=== PATIENT | male | born 1980 | race African-American/Black ===

== ENCOUNTER 2019-11-08 08:22 | Emergency (ER) | payer SELFPAY ==
[~2019-11-08] VITALS: Ht 177.8 cm; Wt 59.0 kg
[2019-11-08 08:45] VITALS: BP 130/63
[2019-11-08] MEDS ORDERED: TRAM50TA PO (08:59)
[2019-11-08] MEDS ORDERED: AMOX500T PO (09:00)
[2019-11-08] MEDS ORDERED: KETOROLAC 60 MG/2 ML VIAL. IM ONE (09:00)
[2019-11-08] MEDS ORDERED: IBUP-1060 PO (09:00)
--- NOTE | 2019-11-08 09:00 | PHYS DOC ---
General Adult EDM: Chief Complaint: DENTAL PROBLEM HPI: HPI: Patient is a 39 year old male who presented to ER today for evaluation of right lower dental pain and right lower jaw pain and swelling since yesterday. Patient denies any fever, no headache, no cough, no fever. Review of Systems: Review of Systems: Constitutional: Denies fever or chills. [] Eyes: Denies change in visual acuity. [] HENT: Denies nasal congestion or sore throat. [] Positive for right lower dental pain and right lower jaw swelling. Respiratory: Denies cough or shortness of breath. [] Cardiovascular: Denies chest pain or edema. [] GI: Denies abdominal pain, nausea, vomiting, bloody stools or diarrhea. [] : Denies dysuria. [] Musculoskeletal: Denies back pain or joint pain. [] Integument: Denies rash. [] Neurologic: Denies headache, focal weakness or sensory changes. [] Endocrine: Denies polyuria or polydipsia. [] Lymphatic: Denies swollen glands. [] Psychiatric: Denies depression or anxiety. [] Heart Score: Risk Factors: Risk Factors: DM, Current or recent (<one month) smoker, HTN, HLP, family history of CAD, obesity. Risk Scores: Score 0 - 3: 2.5% MACE over next 6 weeks - Discharge Home Score 4 - 6: 20.3% MACE over next 6 weeks - Admit for Clinical Observation Score 7 - 10: 72.7% MACE over next 6 weeks - Early Invasive Strategies Physical Exam: PE: Constitutional: Well developed, well nourished, no acute distress, non-toxic appearance. [] HENT: Normocephalic, atraumatic, bilateral external ears normal, oropharynx moist, no oral exudates, nose normal. Right side jaw is swollen, there is no crepitus, no trismus. There is a cavitated second molar on the right lower, tender to palpation, no palpable abscess Eyes: PERRLA, EOMI, conjunctiva normal, no discharge. [] Neck: Normal range of motion, no tenderness, supple, no stridor. [] Cardiovascular:Heart rate regular rhythm, no murmur [] Lungs & Thorax: Bilateral breath sounds clear to auscultation [] Abdomen: Bowel sounds normal, soft, no tenderness, no masses, no pulsatile m asses. [] Skin: Warm, dry, no erythema, no rash. [] Neurologic: Alert and oriented X 3, normal motor function, normal sensory function, no focal deficits noted. [] Psychologic: Affect normal, judgement normal, mood normal. [] EKG: EKG: [] Radiology/Procedures: Radiology/Procedures: [] Course & Med Decision Making: Course & Med Decision Making Pertinent Labs and Imaging studies reviewed. (See chart for details) [] Dragon Disclaimer: Dragon Disclaimer: This electronic medical record was generated, in whole or in part, using a voice recognition dictation system. Departure Departure Impression: Primary Impression: Infected dental caries Disposition: 01 HOME, SELF-CARE Condition: STABLE Referrals: NO PCP (PCP) PLEASE FOLLOW UP WITH YOUR DENTIST NEXT WEEK. Patient Instructions: Dental Caries Additional Instructions: [facility] [address] [place] [address] [facility] [address] [place] [address] [facility] [address] [facility] [place] [address] [facility] [address] [place] [address] [facility] [address] [place] [address] [facility] [address] [place] [address] [facility] [address] [place] [address] [facility] [address] [place] [address] [facility] [address] [place] [address] [facility] [address] [place] [address] Scripts Ibuprofen (IBUPROFEN) 800 Mg Tablet 800 MG PO PRN Q6HRS PRN for INFLAMMATION, #30 TAB Prov: ILIANA WANG DO 11/08/19 Amoxicillin (AMOXICILLIN) 500 Mg Tablet 1 TAB PO TID for 10 Days, #30 TAB Prov: ILIANA WANG DO 11/08/19 Tramadol Hcl (TRAMADOL HCL) 50 Mg Tablet 50 MG PO Q6HRS PRN for PAIN, #20 TAB Prov: ILIANA WANG DO 11/08/19 Justicifation of Admission Dx: Justifications for Admission: Justification of Admission Dx: N/A ILIANA WANG DO Nov 08, 2019 09:00
== END 2019-11-08 09:30 | disposition home or self-care (01) ==
LOC: ER 08:22
DX: K02.9 Dental caries, unspecified (principal); K08.89 Other specified disorders of teeth and supporting structures; R68.84 Jaw pain; R60.0 Localized edema
CPT/HCPCS: 99283; J1885